=== PATIENT | female | born 1960 | race Caucasian/White ===

== ENCOUNTER 2020-11-29 16:08 | Emergency (ER) | payer OTHER ==
[~2020-11-29] VITALS: Ht 167.6 cm; Wt 60.0 kg
[2020-11-29] MEDS ORDERED: LIDOCAINE HCL/EPINEPHRINE 1%-EPI 1:100,000 20 ML VIAL INFIL NR (17:40)
[2020-11-29] MEDS ORDERED: LIDOCAINE HCL/EPINEPHRINE 1%-EPI 1:100,000 10 ML VIAL IJ ONE (17:45)
[2020-11-29] MEDS ORDERED: ACETAMINOPHEN 325MG TABLET PO ONE (17:45)
[2020-11-29] MEDS ORDERED: BACITRACIN ZINC OINT UDPKT TOP ONE (17:45)
[2020-11-29] MEDS ORDERED: LABETALOL 5MG/ML SYR 20 MG/4 ML SYRINGE IV ONE (19:00)
[2020-11-29] MEDS ORDERED: NICARDIPINE 50 MG in SODIUM CHLORIDE 0.9% 230 ML IV STA (19:14)
[2020-11-29 19:28] LABS: HEMATOCRIT. 36.8 % (36.0-48.0); HEMOGLOBIN. 12.6 g/dL (12.0-16.0); MEAN CORPUSCULAR HEMOGLOBIN 29.1 pg (28.0-32.0); MEAN CORPUSCULAR VOLUME 85.4 fL (81.0-99.0); PLATELET 328 x1000/uL (130-400); RED BLOOD CELL COUNT 4.32 mill/uL (4.2-5.4); RED CELL DISTRIBUTION WIDTH 13.9 % (11.6-14.6)
[2020-11-29 19:38] LABS: CHLORIDE 107 mEq/L (98-107); PROTHROMBIN TIME 10.9 sec (9.6-11.0)
[2020-11-29] MEDS ORDERED: NICARDIPINE 50 MG in SODIUM CHLORIDE 0.9% 230 ML IV NR (19:45)
[2020-11-29 20:28] VITALS: BP 165/87
[2020-11-29 20:45] LABS: PLATELET ESTIMATE NORMAL
== END 2020-11-29 20:46 | disposition short-term general hospital (02) ==
LOC: ER 16:08
DX: S02.40FA Zygomatic fracture, left side, initial encounter for closed fracture (principal); S01.01XA Laceration without foreign body of scalp, initial encounter; S30.811A Abrasion of abdominal wall, initial encounter; S50.812A Abrasion of left forearm, initial encounter; I62.9 Nontraumatic intracranial hemorrhage, unspecified; I10 Essential (primary) hypertension; W18.39XA Other fall on same level, initial encounter; Y93.01 Activity, walking, marching and hiking; Y92.89 Other specified places as the place of occurrence of the external cause; Y99.8 Other external cause status
CPT/HCPCS: 12001; 36415; 70450; 70486; 80053; 85025; 85610; 86850; 86900; 86901; 93005; 96365; 96375; 99285; A4217; J3490; J7050; Z7610

== ENCOUNTER 2023-10-04 12:53 | Emergency (ER) | payer MEDICAID ==
[~2023-10-04] VITALS: Ht 170.2 cm; Wt 65.9 kg
[2023-10-04 12:55] VITALS: O2SAT 100
[2023-10-04] MEDS: BACITRACIN ZINC OINT UDPKT TOP ONE (13:30)
[2023-10-04] MEDS: LIDOCAINE HCL/PF 1% 10 MG/ML 5ML VIAL INFIL ONE (13:32)
[2023-10-04] MEDS: TETANUS, DIPHTHERIA, PERTUSSIS VAC/PF 0.5ML (>10YR OLD) IM ONE (13:32)
[2023-10-04] MEDS ORDERED: BO1 TP (14:12)
[2023-10-04] MEDS ORDERED: AMLO5TAB88 MT (14:24)
[2023-10-04 15:00] VITALS: BP 198/98; PULSE 85; RESP 18; TEMP 98.5
[2023-10-04] MEDS: AMLODIPINE 5MG TABLET PO ONE (15:03)
== END 2023-10-04 15:06 | disposition home or self-care (01) ==
LOC: ER 12:53
DX: S61.511A Laceration without foreign body of right wrist, initial encounter (principal); I10 Essential (primary) hypertension; Z98.890 Other specified postprocedural states; Z88.0 Allergy status to penicillin; X58.XXXA Exposure to other specified factors, initial encounter; Y93.G1 Activity, food preparation and clean up; Y92.89 Other specified places as the place of occurrence of the external cause; Y99.8 Other external cause status
CPT/HCPCS: 99283; 90715; 12002; 90471; J3490